=== PATIENT | male | born 1955 | race Caucasian/White ===

== ENCOUNTER 2021-01-27 10:14 | Emergency (ER) | payer OTHER ==
[~2021-01-27] VITALS: Ht 177.8 cm; Wt 68.0 kg
[2021-01-27 11:11] LABS: Basophils # (auto) 0.2 10 ^3/uL (0-0.2); Eosinophils # (auto) 0 10 ^3/uL (0-0.8); Hemoglobin 11.3 g/dL (13.5-17.5); Lymphocytes # (auto) 0.4 10 ^3/uL (0.4-5.4)
[2021-01-27 11:15] LABS: Basophils % (auto) 1.4 % (0.0-2.0); Hematocrit 33.9 % (41.0-53.0); INR 1.18 (0.9-1.15); Lymphocytes % (auto) 2.5 % (10.0-50.0); Mean Corpuscular Hemoglobin 27.9 pg (28.0-32.0); Mean Corpuscular Hgb Conc. 33.3 g/dL (32.0-36.0); Mean Corpuscular Volume 83.8 fL (80.0-100.0); Monocytes # (auto) 1.3 10 ^3/uL (0-1.3); Monocytes % (auto) 8.5 % (0.0-12.0); Neutrophils # (auto) 12.9 10 ^3/uL (1.6-8.6); Neutrophils % (auto) 87.6 % (37.0-80.0); Nucleated Red Blood Cells % 0.1 %; Partial Thromboplastin Time 30.2 sec (23.0-31.2); Platelet Count (auto) 615 10^3/uL (140-450); Red Blood Cells 4.05 10^6/uL (4.5-5.90); Red Cell Distribution Width 15.1 % (11.8-14.3); White Blood Cell 14.8 10^3/uL (4.4-10.8)
[2021-01-27 11:43] LABS: Albumin 2.2 g/dL (3.4-5.0); Anion Gap 10 (5-15); Blood Urea Nitrogen 17 mg/dL (7-18); Calcium 8.7 mg/dL (8.5-10.1); Carbon Dioxide 21 mmol/L (21-32); Chloride 106 mmol/L (98-107); Glucose 111 mg/dL (74-106); Magnesium 2.1 mg/dL (1.6-2.6); Potassium 3.8 mmol/L (3.5-5.1); Sodium 137 mmol/L (136-145)
[2021-01-27 11:50] LABS: Alanine Aminotransferase 18 U/L (16-61); Alkaline Phosphatase 75 U/L (45-117); Aspartate Aminotransferase 28 U/L (15-37); BUN/Creatinine Ratio 37.8; Bilirubin, Total 0.9 mg/dL (0.2-1.0); GFR African American 242 mL/min; GFR Non-African American 200 mL/min; Lactate Dehydrogenase 195 U/L (87-241); Total Protein 7.2 g/dL (6.4-8.2)
[2021-01-27] MEDS ORDERED: ALBUTEROL SULF 2.5 MG/0.5ML(0.5%) NEB SOLN NEB PRN (12:00)
[2021-01-27] MEDS ORDERED: ENOXAPARIN SOD 40 MG/0.4 ML SYRINGE SC SCH (12:00)
[2021-01-27] MEDS ORDERED: levoFLOXacin 250MG 50 ML IV SCH (12:00)
[2021-01-27] MEDS ORDERED: IPRATROPIUM BROM 0.5 MG/2.5ML INH SOL NEB PRN (12:00)
[2021-01-27] MEDS ORDERED: levoFLOXacin 750MG 150 ML IV ONE (12:00)
[2021-01-27] MEDS ORDERED: ONDANSETRON HCL 4 MG/2 ML VIAL IV ONE (12:30)
[2021-01-27] MEDS ORDERED: MORPHINE SULFATE 4 MG/ML SYR/VIAL IV ONE (12:30)
[2021-01-27 12:39] LABS: Urine Bacteria NONE SEEN /hpf (None Seen); Urine Blood Negative /uL (Negative); Urine Mucus MODERATE (None Seen); Urine Specific Gravity 1.034 (1.001-1.035); Urine WBC 3 /hpf (0 - 3)
[2021-01-27] MEDS ORDERED: methylPREDNISolone SOD SUCC 125 MG/2 ML VL IV SCH (14:00)
[2021-01-27 15:45] VITALS: BP 136/79
[2021-01-27] MEDS ORDERED: IOHEXOL 350 MG/ML 100ML IJ ONE (17:33)
[2021-01-27 19:40] VITALS: BP 106/67
[2021-01-28] MEDS ORDERED: levoFLOXacin 750MG 150 ML IV SCH (10:00)
== END 2021-01-27 20:03 | disposition designated cancer center or children's hospital (05) ==
LOC: EDUNIT# 10:14 → EDBD 10:14 → ER 10:14
DX: R06.03 Acute respiratory distress (principal); J18.9 Pneumonia, unspecified organism; E43 Unspecified severe protein-calorie malnutrition; F17.210 Nicotine dependence, cigarettes, uncomplicated; R00.0 Tachycardia, unspecified; Z68.21 Body mass index [BMI] 21.0-21.9, adult; Z85.118 Personal history of other malignant neoplasm of bronchus and lung; Z20.822 Contact with and (suspected) exposure to COVID-19
CPT/HCPCS: 36415; 36600; 71045; 71275; 80053; 81001; 82728; 82805; 83605; 83615; 83735; 83880; 84484; 85025; 85610; 85730; 86141; 87040; 87205; 87426; 89051; 93005; 94640; 96365; 96372; 96375; 99291; J1650; J1956; J2930; J7644; Q9967